=== PATIENT | male | born 1945 | race African-American/Black ===

== ENCOUNTER 2018-01-15 09:47 | Emergency (ER) | payer MEDICARE ==
[~2018-01-15] VITALS: Ht 167.6 cm; Wt 73.0 kg
[2018-01-15 11:56] VITALS: BP 128/73
== END 2018-01-15 11:56 | disposition home or self-care (01) ==
LOC: ER 09:47
DX: S40.861A Insect bite (nonvenomous) of right upper arm, initial encounter (principal); F17.200 Nicotine dependence, unspecified, uncomplicated; W57.XXXA Bitten or stung by nonvenomous insect and other nonvenomous arthropods, initial encounter; Y93.89 Activity, other specified; Y92.018 Other place in single-family (private) house as the place of occurrence of the external cause
CPT/HCPCS: 99283

== ENCOUNTER 2018-01-16 22:45 | Emergency (ER) | payer MEDICARE ==
[~2018-01-16] VITALS: Ht 167.6 cm; Wt 73.0 kg
[2018-01-17 04:19] VITALS: BP 150/81
[2018-01-17] MEDS ORDERED: DEXAMETHASONE 4MG/ML 1ML VIAL IM ONE (04:30)
== END 2018-01-17 04:49 | disposition home or self-care (01) ==
LOC: ER 22:45
DX: T78.49XA Other allergy, initial encounter (principal); L50.9 Urticaria, unspecified; F17.200 Nicotine dependence, unspecified, uncomplicated; Z98.890 Other specified postprocedural states; X58.XXXA Exposure to other specified factors, initial encounter
CPT/HCPCS: 96372; 99283; J1100